=== PATIENT | female | born 1950 | race Caucasian/White ===

== ENCOUNTER 2018-06-07 11:54 | Outpatient (CLI) | payer MEDICARE ==
--- NOTE | 2018-06-08 11:05 | EEG ---
Referring Physician: Mark MONTEIRO EEG # [id number] TEST TYPE: ROUTINE OUTPATIENT REPORT: AN EEG USING THE INTERNATIONAL TEN-TWENTY SYSTEM OF ELECTRODE PLACEMENT WAS PERFORMED. The waking background is a 9-10 hertz frequency. The patient became drowsy, but no sleep was seen. Hyperventilation and photic stimulation were unremarkable. No epileptiform features were seen. IMPRESSION: THIS IS A NORMAL AWAKE AND DROWSY EEG. Meter Changes Records Clerk: CAROLYNN Ditcher: EEG.ELFEGO BOLES
== END 2018-06-07 11:55 | disposition home or self-care (01) ==
LOC: EEG 11:54
PROVIDERS: ATTEND Internal Medicine
DX: R56.9 Unspecified convulsions (principal)
CPT/HCPCS: 95816

== ENCOUNTER 2018-07-24 11:09 | Observation (INO) | payer MEDICARE ==
[2018-07-24 11:35] LABS: #Basophils 0.1 thou/uL (0.0-0.2); #Eosinphils 0.1 thou/uL (0.0-0.7); #Lymphocytes 2.7 thou/uL (1.20-3.40); #Monocytes 0.5 thou/uL (0.11-0.59); #Neutrophils 3.1 thou/uL (1.40-6.50); %Basophils 1.7 % (0.0-1.0); %Eosinophils 1.7 % (0.0-10.0); %Lymphocytes 41.5 % (21.0-51.0); %Monocytes 7.8 % (0.0-10.0); %Neutrophils 47.2 % (42.0-75.0); Hemoglobin 15.7 g/dL (12.0-16.0); Mean Corpuscular HGB CONC 34.9 g/dL (32.0-36.0); Mean Corpuscular Hemoglobin 30.7 pg (27.0-31.0); Mean Corpuscular Volume 88.1 fL (78.0-98.0); Mean Platelet Volume 9.7 fL (7.4-10.4); Platelet Count 230 thou/uL (130-400); RBC Distribution Width 11.5 % (11.5-14.5); Red Blood Cell (RBC) Count 5.11 mill/uL (4.20-5.40); White Blood Cell (WBC) Count 6.6 thou/uL (4.8-10.8)
[2018-07-24] MEDS ORDERED: Nitroglycerin 2% Ointment 1 INCH/1 GM Packet ONE (11:54)
[2018-07-24 11:57] LABS: ALT (SGPT) 24 U/L (8-55); AST (SGOT) 26 U/L (5-34); Albumin 4.6 g/dL (3.4-4.8); Alkaline Phosphatase 60 U/L (40-150); Anion Gap 14 mmol/L (10-20); BUN (Urea Nitrogen) 14 mg/dL (9.8-20.1); Bilirubin, Total 1.4 mg/dL (0.2-1.2); Calc. Creatinine Clearance 0 mL/min (70-130); Carbon Dioxide 28 mmol/L (23-31); Chloride 103 mmol/L (98-107); Estimated GFR-MDRD 80; Globulin 3.3 g/dL (2.4-3.5); Glucose 100 mg/dL (80-115); Potassium 3.3 mmol/L (3.5-5.1); Protein, Total 7.9 g/dL (6.0-8.3); Sodium 142 mmol/L (136-145)
[2018-07-24] MEDS ORDERED: Acetaminophen 325 MG TAB PO PRN (14:57)
[2018-07-24] MEDS ORDERED: Sodium Chloride 0.9% 1,000 ML IV SCH (14:57)
[2018-07-24] MEDS ORDERED: Ondansetron PF 4 MG/2 ML Vial IVP PRN (14:57)
[2018-07-24] MEDS ORDERED: Ondansetron ODT 4 MG TAB PO PRN (14:57)
[2018-07-24 15:14] LABS: Troponin I Less than 0.010 ng/mL (< 0.028)
[2018-07-24 15:34] VITALS: BMI 30.2
--- NOTE | 2018-07-24 17:36 | HP ---
PRIMARY CARE PHYSICIAN: Monster Jones MD CHIEF COMPLAINT: Feeling lightheaded and generally not so well. HISTORY OF PRESENT ILLNESS: Ms. Allen is a very pleasant 67-year-old female, who has a history of hypertension and hyperlipidemia. She also has a history of previous transient ischemic attack. She says that she was in her usual state of health until earlier today. She says she was decorating the [place] tree when she started to feel lightheaded and also felt nauseated. As she was starting to feel nauseated, she started to feel extremely hot and says that her hands felt shaky. She felt sweaty and felt like she might want to blackout. She denies any ren chest pain, but her says that she did complain of some tightness across her chest as well. She also says that she felt weak all over and as a result of this, she came to the ER for evaluation. She says that she has had TIAs in the past. Her last one was in March of this year. She says during those episodes, she would have trouble with word finding and would have some numbness in her body; however, she says these symptoms are completely different. She says that she saw a neurologist recently and was started on Plavix and Aricept and she is wondering if these medications could be causing her symptoms. She also notes that her blood pressure, which used to be low over the last few months to even a year has been steadily increasing to the point where her says that a few times they checked it, it was 190 systolic and she is currently not on any blood pressure medication. She denies having any PND or orthopnea. No lower extremity edema and essentially, no other associated symptoms other than feeling a bit feverish yesterday, some nausea yesterday as well as some diarrhea yesterday as well as today and no other complaints. REVIEW OF SYSTEMS: All systems were reviewed and are negative except for that mentioned in the history of present illness. PAST MEDICAL HISTORY: Significant for hypertension, hyperlipidemia, transient ischemic attack. 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 PAST SURGICAL HISTORY: She has had a hysterectomy and carpal tunnel surgery. ALLERGIES: NO KNOWN DRUG ALLERGIES. SOCIAL HISTORY: She is . She is a nonsmoker. She occasionally drinks. She would like to be a full code. FAMILY HISTORY: She says her father of heart disease suddenly at age 47, also history of cerebrovascular disease. CURRENT MEDICATIONS: Include: 1. Plavix 75 mg daily. 2. Aricept, the dose is unknown. 3. Potassium 10 mEq 2 tablets a day. 4. Celebrex 200 mg daily. 5. Nexium 40 mg daily. 6. Memantine 5 mg daily. 7. Atorvastatin 40 mg daily. 8. Levothyroxine 100 mcg daily. 9. Vitamin D3. PHYSICAL EXAMINATION: GENERAL: She is alert, oriented. She appears to be in no acute distress. VITAL SIGNS: Blood pressure was 183/115, heart rate 65, respiratory rate of 18, and temperature is 97.8. HEENT: Her pupils are equal, round, and reactive. Extraocular muscles are intact. Her sclerae are anicteric. Throat, there is no erythema. No exudates. NECK: No adenopathy. No bruits. LUNGS: Clear to auscultation. There are no wheezing, rales, or rhonchi. CARDIOVASCULAR: She had a normal S1 and S2. I do not appreciate an S3 or S4. No murmurs, clicks, or rubs. ABDOMEN: Obese and soft. There is no rebound or guarding. It was nontender. EXTREMITIES: She has trace but non-pitting edema. No calf tenderness. No erythema. No warmth. NEUROLOGIC: Her cranial nerves II through XII are grossly intact. Her muscle strength is 5/5 in both her upper and lower extremities. SKIN AND INTEGUMENT: There are no skin changes. No rash. LAB RESULTS: Her EKG was reviewed by me, was sinus rhythm. No ST wave changes. The rate was 86. Sodium is 142, potassium 3.3, chloride is 103, CO2 is 28, BUN of 14, creatinine 0.73, and glucose is 100. Troponin is less than 0.010. White blood cell count 6.6, hemoglobin is 15.7, hematocrit is 45, and platelet count is 230. ASSESSMENT AND PLAN: This is a pleasant 67-year-old female, who presents with vague symptoms of feeling lightheaded, a bit nauseated and feeling like she is going to pass out. She has also had some diarrhea and nausea and one episode of vomiting. I suspect this is likely some type of viral syndrome. However, since she has a family history of heart disease with her father dying suddenly at only age 47, we will place her on observation and get a nuclear stress test as well as an echocardiogram. Monitor her for signs of any significant arrhythmia, and if these are negative, then likely she can be discharged home. 1. Hypertension. With some hypertensive urgency as her pressure is fairly high, we will need to start her on an antihypertensive medication as well as p.r.n. medicines and continue this at discharge. 2. Hyperlipidemia. Continue atorvastatin. 3. Nausea and slightly elevated bilirubin. We will get an abdominal ultrasound. The patient gives a history of having some type of hyperammonia levels years ago. She said she had seen Dr. Vences who was one of our neurologist a few years back and her electrolytes were all "off." Therefore, just as a screening, we will get an abdominal ultrasound while she is here. Otherwise, further treatment will be based on her progress. Job ID: [id number]
[2018-07-24 17:42] LABS: Troponin I Less than 0.010 ng/mL (< 0.028)
[2018-07-24] MEDS: cloNIDine 0.1 MG TAB PO PRN (18:16)
[2018-07-24] MEDS: Famotidine 20 MG TAB PO SCH (20:48)
[2018-07-25] MEDS: Nitroglycerin 2% Ointment 1 INCH/1 GM Packet TOP SCH ×2 (04:44→13:53)
[2018-07-25 07:08] LABS: #Basophils 0.1 thou/uL (0.0-0.2); #Eosinphils 0.1 thou/uL (0.0-0.7); #Lymphocytes 2.1 thou/uL (1.20-3.40); #Monocytes 0.4 thou/uL (0.11-0.59); #Neutrophils 2.7 thou/uL (1.40-6.50); %Basophils 1.4 % (0.0-1.0); %Eosinophils 2.1 % (0.0-10.0); %Lymphocytes 39.4 % (21.0-51.0); %Monocytes 7.3 % (0.0-10.0); %Neutrophils 49.9 % (42.0-75.0); Hemoglobin 14.2 g/dL (12.0-16.0); Mean Corpuscular HGB CONC 34.3 g/dL (32.0-36.0); Mean Corpuscular Hemoglobin 30.3 pg (27.0-31.0); Mean Corpuscular Volume 88.5 fL (78.0-98.0); Mean Platelet Volume 9.7 fL (7.4-10.4); Platelet Count 207 thou/uL (130-400); RBC Distribution Width 11.5 % (11.5-14.5); White Blood Cell (WBC) Count 5.4 thou/uL (4.8-10.8)
[2018-07-25 07:23] LABS: ALT (SGPT) 23 U/L (8-55); AST (SGOT) 23 U/L (5-34); Albumin 3.9 g/dL (3.4-4.8); Alkaline Phosphatase 50 U/L (40-150); Anion Gap 12 mmol/L (10-20); BUN (Urea Nitrogen) 13 mg/dL (9.8-20.1); Bilirubin, Total 1.5 mg/dL (0.2-1.2); Calc. Creatinine Clearance 92 mL/min (70-130); Calcium 9.3 mg/dL (7.8-10.44); Carbon Dioxide 27 mmol/L (23-31); Chloride 105 mmol/L (98-107); Estimated GFR-MDRD 81; Globulin 2.7 g/dL (2.4-3.5); Glucose 102 mg/dL (80-115); Potassium 3.8 mmol/L (3.5-5.1); Protein, Total 6.6 g/dL (6.0-8.3); Sodium 140 mmol/L (136-145)
[2018-07-25] MEDS: Famotidine 20 MG TAB PO SCH (08:28)
[2018-07-25] MEDS: cloNIDine 0.1 MG TAB PO PRN (08:30)
[2018-07-25] MEDS ORDERED: ADENOSINE 60 MG/20 ML VIAL ONE (08:33)
[2018-07-25] MEDS ORDERED: Enoxaparin Sodium 40 MG/0.4 ML SYRINGE SC SCH (09:00)
[2018-07-25] MEDS ORDERED: Clopidogrel Bisulfate 75 MG TAB PO SCH (09:00)
--- NOTE | 2018-07-25 10:51 | ULT ---
ABDOMINAL ULTRASOUND: HISTORY: Elevated bilirubin, nausea. FINDINGS: Multiple longitudinal and transverse images of the abdomen were obtained using a multihertz curviline ar transducer. Rela-time, color flow, and spectral waveform Doppler analysis was used to evaluate th e abdomen. The liver is unremarkable. Normal hepatopetal flow is seen in the portal system. The gallbladder is unremarkable with no evidence of gallstones. The visualized portions of the pancreas are unremarkab le. Common bile duct is of normal size measuring 3 mm. The spleen is unremarkable. Abdominal aorta is unremarkable with no evidence of aneurysm. Inferior vena cava in the visualized p ortions is unremarkable. The right kidney measures 10.8 and the left kidney 9.5 cm from pole to pole. No evidence of ascites seen. IMPRESSION: Normal abdominal ultrasound. POS: H
[2018-07-25 13:14] VITALS: BP 134/65; TEMP 97.7
--- NOTE | 2018-07-25 14:15 | NM ---
MYOCARDIAL PERFUSION SCAN: DATE: 07/25/2018. PROVIDED CLINICAL HISTORY: Chest pain. RADIOPHARMACEUTICAL: 30.4 mCi Technetium 99m labeled sestamibi IV stress. 11 mCi Technetium 99m labeled sestamibi IV rest. FINDINGS: There is normal, homogeneous distribution of the radiotracer throughout the left ventricular myocardi um at stress and rest. Gated data demonstrate normal myocardial wall thickening and motion. Calcula katlin LEVF is 73%. TID is 1.26. IMPRESSION: 1. No scintigraphic evidence for ischemia. 2. Normal left ventricular ejection fraction. POS: [facility]
--- NOTE | 2018-07-26 09:05 | DIS ---
DATE OF ADMISSION: 07/24/2018 DATE OF DISCHARGE: 07/25/2018 PRIMARY CARE PHYSICIAN: Dr. Jones. CONSULTANTS: None. PROCEDURES: 1. The patient had an abdominal ultrasound, which showed a normal abdominal ultrasound, no acute findings. The patient also had a stress test with nuclear medicine, which showed an EF of 72% and TID of 1.26, no evidence for ischemia. 2. Normal left ventricular ejection fraction. The patient also had an echocardiogram, which showed an ejection fraction of 60% to 65%. E/A flow reversal was noted, suggestive of diastolic dysfunction. Normal right ventricular size and function. Left atrium is mild to moderately dilated. Normal right atrium size. Mild mitral regurgitation. Structurally normal aortic valve. Trace tricuspid regurgitation. DISCHARGE DIAGNOSES: 1. Hypertension, improved. We will start her on some lisinopril with hydrochlorothiazide as an outpatient. The patient has a followup with Dr. Jones tomorrow. 2. Hyperlipidemia. We will continue with atorvastatin. 3. Nausea and slightly elevated bilirubin. Her nausea has resolved. Abdominal ultrasound negative as mentioned above. 4. Hypothyroidism. We will continue her home medications. HOSPITAL COURSE: Ms. Allen is a pleasant 67-year-old female, who presented to the emergency room on 07/24/2018 after she was decorating her [place] tree and she started to feel lightheaded and felt nauseated. She reports that she felt extremely hot and her hands were shaky. She felt very sweaty and thought that she might have a presyncopal episode. She denied any chest pain at that time. Her says that she did complain of some chest tightness. She reports that she just generally felt weak all over, which prompted her visit to the ER. She says that she has had TIAs in the past, her last one was in March of 2018. She reports that she has seen Dr. Yin recently and he started her on Plavix and Aricept. The patient, based on symptoms and history, was admitted for chest pain evaluation. The patient had 3 serial troponins, which were undetectable. The patient also had a stress test and an echocardiogram with an EF of 60% to 65%, findings as listed above. The patient states she feels better. Blood pressure here has been in the 170s to 180s systolic. We will send her home with some lisinopril and hydrochlorothiazide with the understanding that Dr. Jones may change it tomorrow at her scheduled appointment. Case was discussed with Dr. Zhang, who agrees with discharge plan. The patient is agreeable to be discharged home. REVIEW OF SYSTEMS: The patient was examined this morning. Denied any dizziness currently and reports that she has been able to get up and go to the bathroom and walking the day without any dizziness or any presyncope. Denies any complaints. She reports that she had some nausea overnight, but that has since gone. Denies any abdominal pain, fever, chills, or headache. All other review of systems is reviewed and negative unless mentioned above. PHYSICAL EXAMINATION: VITAL SIGNS: Temperature is 98.2, pulse is 60, respirations are 16, blood pressure 173/81, pulse ox is 95% on room air. GENERAL APPEARANCE: The patient is alert and oriented, not in any acute distress. HEENT: Head is atraumatic and normocephalic. Mouth exam is normal. Mucous membranes are moist. RESPIRATORY: Bilateral air entry, in no respiratory distress. Symmetric expansion. CARDIOVASCULAR: Normal rate and rhythm. No murmurs, gallops, or edema. ABDOMEN: Soft, nontender. Bowel sounds are heard. MUSCULOSKELETAL: Upper and lower extremities with normal inspection, normal range of motion, and normal strength. Pulses are equal bilateral upper and lower. No pedal edema is noted. NEURO: No new sensory or focal weakness. Speech is at baseline. Cranial nerves are intact. PSYCHIATRIC: The patient is oriented to person, place, and time. Normal affect. DISCHARGE MEDICATIONS: The patient will be discharged on her home medications, which include: 1. Aspirin 81 mg p.o. daily. 2. Lipitor 40 mg p.o. at bedtime. 3. Celebrex 200 mg p.o. daily. 4. Vitamin D 5000 units p.o. daily. 5. Plavix 75 mg p.o. daily. 6. Aricept 5 mg p.o. at bedtime, although the patient said she cannot remember the exact dose that was just started. 7. Lexapro 5 mg p.o. daily. 8. Protonix 40 mg p.o. daily. 9. Levothyroxine 100 mcg p.o. daily. 10. Memantine 5 mg p.o. daily. 11. Potassium chloride 20 mEq p.o. b.i.d. Added on this visit, lisinopril and hydrochlorothiazide 10 mg/12.5 mg p.o. daily. ALLERGIES: NO KNOWN ALLERGIES. DISCHARGE CONDITION: The patient's condition is stable. DISCHARGE DISPOSITION: The patient will be discharged home. REFERRALS: Dr. Jones as her scheduled appointment is tomorrow. Encouraged her to keep that appointment. Dr. Yin as needed from her previous TIA earlier in the summer. Job ID: [id number]
--- NOTE | 2018-07-31 13:25 | EKG ---
Test Reason : Blood Pressure : / mmHG Vent. Rate : 066 BPM Atrial Rate : 066 BPM P-R Int : 174 ms QRS Dur : 084 ms QT Int : 446 ms P-R-T Axes : 043 -04 028 degrees QTc Int : 467 ms Normal sinus rhythm Normal ECG Confirmed by LAILA TROY DO ([id number]), editor managing newspaper MIRI FERREIRA ([id number]) on 07/31/2018 1:24:42 PM Referred By: Confirmed By:LAILA TROY DO
== END 2018-07-25 15:22 | disposition home or self-care (01) ==
LOC: ERS 11:09 → 2SW 12:52
PROVIDERS: ADMIT Internal Medicine; ATTEND Internal Medicine
DX: R07.89 Other chest pain (principal); R42 Dizziness and giddiness; I16.0 Hypertensive urgency; I10 Essential (primary) hypertension; E78.5 Hyperlipidemia, unspecified; R11.2 Nausea with vomiting, unspecified; R19.7 Diarrhea, unspecified; E80.6 Other disorders of bilirubin metabolism; E03.9 Hypothyroidism, unspecified; I08.1 Rheumatic disorders of both mitral and tricuspid valves; E78.00 Pure hypercholesterolemia, unspecified; Z86.73 Personal history of transient ischemic attack (TIA), and cerebral infarction without residual deficits; Z79.02 Long term (current) use of antithrombotics/antiplatelets; Z79.899 Other long term (current) drug therapy
CPT/HCPCS: 76700; 78452; 80053 ×2; 84484 ×2; 85025 ×2; 93005; 93017; 93306; 94760 ×2; 96360; 96361 ×2; 99285; A9500; G0378 ×2; 36415; J0153

== ENCOUNTER → 2018-10-26 | Day surgery (SDC) | payer MEDICARE | LOC: ENDO/OP 07:43 | PROVIDERS: ATTEND Surgery | DX: K21.9 Gastro-esophageal reflux disease without esophagitis (principal); K44.9 Diaphragmatic hernia without obstruction or gangrene; Z79.82 Long term (current) use of aspirin; Z79.02 Long term (current) use of antithrombotics/antiplatelets; Z79.1 Long term (current) use of non-steroidal anti-inflammatories (NSAID); Z79.899 Other long term (current) drug therapy | CPT/HCPCS: 91010 ==

== ENCOUNTER 2018-11-12 03:36 | Outpatient (CLI) | payer MEDICARE ==
[2018-11-12 10:55] LABS: #Basophils 0.1 thou/uL (0.0-0.2); #Eosinphils 0.1 thou/uL (0.0-0.7); #Lymphocytes 2.3 thou/uL (1.20-3.40); #Monocytes 0.6 thou/uL (0.11-0.59); %Lymphocytes 38.3 % (21.0-51.0); %Monocytes 9.2 % (0.0-10.0); %Neutrophils 49.6 % (42.0-75.0); Hemoglobin 13.2 g/dL (12.0-16.0); Mean Corpuscular HGB CONC 33.5 g/dL (32.0-36.0); Mean Corpuscular Hemoglobin 30.3 pg (27.0-31.0); Mean Corpuscular Volume 90.6 fL (78.0-98.0); Mean Platelet Volume 9.3 fL (7.4-10.4); Platelet Count 227 thou/uL (130-400); RBC Distribution Width 11.7 % (11.5-14.5); Red Blood Cell (RBC) Count 4.34 mill/uL (4.20-5.40)
[2018-11-12 11:24] LABS: ALT (SGPT) 25 U/L (8-55); AST (SGOT) 22 U/L (5-34); Albumin 4.4 g/dL (3.4-4.8); Alkaline Phosphatase 52 U/L (40-150); Anion Gap 11 mmol/L (10-20); BUN (Urea Nitrogen) 17 mg/dL (9.8-20.1); Bilirubin, Total 1.1 mg/dL (0.2-1.2); Calc. Creatinine Clearance 0 mL/min (70-130); Calcium 9.8 mg/dL (7.8-10.44); Carbon Dioxide 30 mmol/L (23-31); Chloride 103 mmol/L (98-107); Estimated GFR-MDRD 81; Globulin 2.9 g/dL (2.4-3.5); Glucose 100 mg/dL (80-115); Potassium 3.8 mmol/L (3.5-5.1); Protein, Total 7.3 g/dL (6.0-8.3); Sodium 140 mmol/L (136-145)
--- NOTE | 2018-11-15 17:52 | EKG ---
Test Reason : Blood Pressure : / mmHG Vent. Rate : 058 BPM Atrial Rate : 058 BPM P-R Int : 176 ms QRS Dur : 082 ms QT Int : 450 ms P-R-T Axes : 050 011 008 degrees QTc Int : 441 ms Sinus bradycardia Possible Anterior infarct , age undetermined Abnormal ECG When compared with ECG of 24-JUL-2018 11:21, No significant change was found Confirmed by CHRISTINA CARMICHAEL (2) on 11/15/2018 5:52:08 PM Referred By: KRAIG Confirmed By:CHRISTINA CARMICHAEL
== END 2018-11-12 03:37 | disposition home or self-care (01) ==
LOC: LABBT 03:36
PROVIDERS: ATTEND Surgery
DX: Z01.818 Encounter for other preprocedural examination (principal); K21.9 Gastro-esophageal reflux disease without esophagitis; K44.9 Diaphragmatic hernia without obstruction or gangrene
CPT/HCPCS: 80053; 85025; 93005; 93010

== ENCOUNTER 2018-11-15 08:27 | Inpatient (IN) | payer MEDICARE ==
[2018-11-12 09:37] VITALS: BMI 31.2
[2018-11-15] MEDS ORDERED: Fentanyl 100 MCG/2 ML VIAL ONE ×2 (10:03→12:08)
[2018-11-15] MEDS ORDERED: Bupivacaine/Epinephrine 0.25% 30 ML VIAL ONE (10:04)
[2018-11-15] MEDS ORDERED: Promethazine HCl 25 MG/ML VIAL IM PRN ×2 (11:45→11:51)
[2018-11-15] MEDS ORDERED: Hydrocodone-Acetamin 15 ML UDCUP PO PRN (11:45)
[2018-11-15] MEDS ORDERED: Dextrose 5% in Water 1,000 ML IV PRN (11:45)
[2018-11-15] MEDS ORDERED: diphenhydrAMINE 50 MG/ML VIAL IVP PRN (11:45)
[2018-11-15] MEDS ORDERED: Dextrose 50% Abboject 50 ML SYRINGE SLOW IVP PRN (11:45)
[2018-11-15] MEDS ORDERED: hydrALAZINE 20 MG/ML VIAL SLOW IVP PRN (11:45)
[2018-11-15] MEDS ORDERED: Morphine 2 MG/ML SYRINGE SLOW IVP PRN (11:45)
[2018-11-15] MEDS ORDERED: Promethazine HCl 25 MG/ML VIAL SLOW IVP PRN (11:51)
[2018-11-15] MEDS ORDERED: Morphine Sulfate 2 MG/ML SYRINGE SLOW IVP PRN (11:51)
[2018-11-15] MEDS ORDERED: HYDROmorphone 2 MG/ML VIAL SLOW IVP PRN (11:51)
[2018-11-15] MEDS ORDERED: PACU-Morphine 4MG/ML VIAL SLOW IVP PRN (11:51)
[2018-11-15] MEDS ORDERED: Ketorolac Tromethamine 30 MG/ML VIAL IVP PRN (11:51)
[2018-11-15] MEDS ORDERED: Ondansetron HCl/PF 4 MG/2 ML Vial IVP PRN (11:51)
[2018-11-15] MEDS ORDERED: Meperidine HCl/PF 25 MG/ML VIAL SLOW IVP PRN (11:51)
[2018-11-15] MEDS: Ketorolac Tromethamine 30 MG/ML VIAL IVP SCH ×2 (13:24→17:56)
[2018-11-15] MEDS: D5 1/2 NS w/20 mEq KCL 1,000 ML IV SCH ×2 (13:24→20:52)
[2018-11-15] MEDS: Morphine 4 MG/ML VIAL SLOW IVP PRN ×2 (13:43→17:57)
[2018-11-15] MEDS: Ondansetron PF 4 MG/2 ML Vial IVP PRN ×2 (13:43→18:12)
--- NOTE | 2018-11-15 13:46 | OP ---
DATE OF PROCEDURE: 11/15/2018 PREOPERATIVE DIAGNOSIS: Hiatal hernia with gastroesophageal reflux. PROCEDURE PERFORMED: Laparoscopic Shakila fundoplication with esophagogastroscopy. INDICATIONS: A 68-year-old female with intractable gastroesophageal reflux, no longer responding to proton pump inhibitors with esophagitis. FINDINGS: Showed about 3 cm hiatal hernia. A 42-Arabic bougie used. DESCRIPTION OF PROCEDURE: After informed consent was obtained, the patient was taken to the operating room and given general endotracheal anesthesia, placed in the supine position. Abdomen was prepped and draped in usual fashion. Local anesthesia infiltrated subcutaneously and deep. A 5 mm incision was performed approximately 8 inches above the xiphoid slightly to the left. Veress needle inserted. Drop test performed. Pneumoperitoneum was created to a volume of 2 L of carbon dioxide. Using a 5-mm port and 5-mm laparoscope, direct visual entry into the abdominal cavity was performed. Pneumoperitoneum was created to a pressure of 15 mmHg and the patient placed in steep reverse Trendelenburg position. Geraldine liver retractor inserted. Left lobe of the liver retracted superiorly. A 5-mm port was placed just to the left of the falciform. An 8-mm port placed on left subcostal, and another 5-mm port placed on left lateral abdomen. The gastrophrenic ligament was divided utilizing the LigaSure. The peritoneum opened anteriorly with the LigaSure and the left crura defined with the LigaSure. Then, the short gastrics were taken down utilizing the LigaSure and the posterior crural area was dissected with the LigaSure. The posterior vagal nerve was identified and preserved. A window was created between the hiatus and the posterior vagal nerve using blunt dissection. A Gloria drain was inserted through this area to allow retraction of the esophagus. A 42-Arabic bougie was inserted directed into the stomach. Then, a posterior crural plication was performed utilizing 0 Ethibond with Sew-Right and Ti-Knot device. Then, the fundus was grasped and brought to the right side of the esophagus. A fundoplication was performed utilizing 2-0 silk sutures tied intracorporeally between the left portion of the fundus, the esophagus, and the right portion of the fundus. Three sutures were placed. This was done intracorporeally. A gastropexy was then performed between the inferior lateral portion of the fundus to the abdominal wall at the costal margin with a 2-0 silk suture tied intracorporeally. Intraoperative endoscopy was then performed. The video endoscope inserted under direct vision, advanced into the stomach. The pylorus was patent. The scope was retroflexed. The wrap was inspected. There was no torsion, no paraesophageal component. The stomach decompressed. The scope removed. Then, Tisseel tissue sealant was applied to the hiatal opening and the wrap circumferentially. The abdomen decompressed. Scope removed. Trocars and retractors removed. Skin closed with interrupted 4-0 Rapide. Dermabond applied. The patient tolerated the procedure well, transferred to Recovery in good condition. Sponge and needle count verified correct x2. Job ID: [id number]
[2018-11-15] MEDS ORDERED: ePHEDrine 50 MG/ML VIAL ONE (15:27)
[2018-11-15] MEDS ORDERED: Rocuronium Bromide 10 MG/ML (10ML VIAL) ONE (15:27)
[2018-11-15] MEDS ORDERED: Succinylcholine Chloride 20 MG/ML 10 ml SYRINGE FS ONE (15:27)
[2018-11-15] MEDS ORDERED: Lidocaine 1% PF 5 ML VIAL ONE (15:27)
[2018-11-15] MEDS ORDERED: Glycopyrrolate 0.2 MG/ML 5 ML SYRINGE ONE (15:27)
[2018-11-15] MEDS ORDERED: PROPOFOL 200 MG/20 ML VIAL ONE (15:27)
[2018-11-15] MEDS ORDERED: Dexamethasone 20 MG/5 ML VIAL ONE (15:27)
[2018-11-15] MEDS: CEFAZOLIN 2 GM in Premix Bag 1 BAG IVPB SCH (21:00)
[2018-11-16] MEDS: Ketorolac Tromethamine 30 MG/ML VIAL IVP SCH ×3 (01:21→12:15)
[2018-11-16 04:38] LABS: #Lymphocytes 1.5 thou/uL (1.20-3.40); #Neutrophils 11.2 thou/uL (1.40-6.50); %Basophils 0.1 % (0.0-1.0); %Eosinophils 0.1 % (0.0-10.0); %Lymphocytes 10.8 % (21.0-51.0); %Monocytes 7.3 % (0.0-10.0); %Neutrophils 81.7 % (42.0-75.0); Hemoglobin 11.7 g/dL (12.0-16.0); Mean Corpuscular Hemoglobin 30.6 pg (27.0-31.0); Mean Corpuscular Volume 89.8 fL (78.0-98.0); Mean Platelet Volume 9.5 fL (7.4-10.4); Platelet Count 194 thou/uL (130-400); RBC Distribution Width 11.8 % (11.5-14.5); Red Blood Cell (RBC) Count 3.83 mill/uL (4.20-5.40); White Blood Cell (WBC) Count 13.7 thou/uL (4.8-10.8)
[2018-11-16 04:53] LABS: Anion Gap 12 mmol/L (10-20); BUN (Urea Nitrogen) 10 mg/dL (9.8-20.1); Calc. Creatinine Clearance 97 mL/min (70-130); Calcium 9.1 mg/dL (7.8-10.44); Carbon Dioxide 27 mmol/L (23-31); Chloride 104 mmol/L (98-107); Estimated GFR-MDRD 84; Glucose 142 mg/dL (80-115); Potassium 4.5 mmol/L (3.5-5.1); Sodium 138 mmol/L (136-145)
[2018-11-16] MEDS: D5 1/2 NS w/20 mEq KCL 1,000 ML IV SCH ×2 (05:40→09:45)
[2018-11-16] MEDS: CEFAZOLIN 2 GM in Premix Bag 1 BAG IVPB SCH (05:41)
[2018-11-16] MEDS ORDERED: Pantoprazole 40 MG VIAL IVP SCH (09:00)
[2018-11-16] MEDS ORDERED: Enoxaparin Sodium 40 MG/0.4 ML SYRINGE SC SCH (09:00)
--- NOTE | 2018-11-16 09:19 | RAD ---
FExam: CT cervical spine without contrast HISTORY: Trauma. Pain. Status post fall. COMPARISON: None FINDINGS: No craniocervical dissociation. Appropriate alignment of the lateral masses of C1 and C2. A ppropriate alignment of the facets. Intact odontoid process Extensive cervical fusion from C3 through T1. No louis hardware lucency. Cervical spine vertebral body height is maintained. No fracture. Soft tissue neck structures are unremarkable. Varying degrees of central canal stenosis and neural foraminal narrowing on the basis of degenerative change. Evaluation is limited due to technique There is straightening of the upper mediastinal fat, nonspecific Because lung apices are unremarkable Straightening of normal cervical lordosis is preserved to be due to cervical fusion. There is concern for ligament injury, consider MRI. IMPRESSION: 1. Uncomplicated cervical fusion. Straightening of normal cervical lordosis as detailed above. If th ere is concern for ligamentous injury, consider MRI 2. Cervical spine vertebral body height is maintained. No fracture. 3. Nonspecific stranding of the upper mediastinal fat, probably paraesophageal in location.
[2018-11-16 15:20] VITALS: BP 122/68; TEMP 98.4
--- NOTE | 2018-11-16 18:45 | DIS ---
DATE OF ADMISSION: 11/15/2018 DATE OF DISCHARGE: 11/16/2018 DISCHARGE DIAGNOSIS: Hiatal hernia with gastroesophageal reflux. PROCEDURE DURING ADMISSION: Laparoscopic Shakila fundoplication, intraoperative esophagogastroscopy, postoperative Gastrografin swallow. HOSPITAL COURSE: The patient was admitted, taken to the operating room where she underwent a repair of hiatal hernia and Shakila. Postoperatively, she has done well. Gastrografin swallow was fine. Started on liquids. She is tolerating well. She was discharged home on hydrocodone and Zofran. She will follow up with me in 2 weeks. Job ID: [id number]
--- NOTE | 2018-11-19 14:25 | RAD ---
UPPER GI SERIES: HISTORY: Status post gastric sleeve. RADIATION DOSIMETRY: 0.8 minutes of fluoroscopy and DAP of 11.4 uGy*^cm2. 15 mL of Gastrografin was given orally. Spot images obtained. The esophagus is unremarkable with no evidence of masses or lesions. The contrast passes into the stomach. The gastric sleeve is in place. Contrast passes through the g raft stomach into the antrum and duodenum. No evidence of extravasation of contrast seen. IMPRESSION: No evidence of extravasation of contrast in a patient with a recently placed gastric sleeve. POS: [facility]
== END 2018-11-16 15:32 | disposition home or self-care (01) | DRG 328 ==
LOC: SDC 08:27 → SURG A 12:54
PROVIDERS: ADMIT Surgery; ATTEND Surgery
PROC: 0DV44ZZ Restriction of Esophagogastric Junction, Percutaneous Endoscopic Approach (ICD-10-PCS; principal; 2018-11-15)
PROC: 0DJ68ZZ Inspection of Stomach, Via Natural or Artificial Opening Endoscopic (ICD-10-PCS; 2018-11-15)
DX: K44.9 Diaphragmatic hernia without obstruction or gangrene (principal); K21.0 Gastro-esophageal reflux disease with esophagitis; K22.70 Barrett's esophagus without dysplasia; E78.00 Pure hypercholesterolemia, unspecified; J45.909 Unspecified asthma, uncomplicated; F32.9 Major depressive disorder, single episode, unspecified; M79.7 Fibromyalgia; Z86.73 Personal history of transient ischemic attack (TIA), and cerebral infarction without residual deficits; Z79.82 Long term (current) use of aspirin; Z90.710 Acquired absence of both cervix and uterus
CPT/HCPCS: 36415; 74241; 80048; 85025; 94760; C9113; J0360; J1100; J1650; J1885; J2001; J2270; J2405; J2550; J2704; J3010; J3490

== ENCOUNTER 2019-02-02 09:24 | Outpatient (CLI) | payer MEDICARE ==
--- NOTE | 2019-02-02 09:52 | MMO ---
Bilateral MAMMO Bilat Screen DDI+ZULEMA. CLINICAL HISTORY: Patient is 68 years old and is seen for screening. The patient has the following family history of breast cancer: paternal aunt, malignant (generic). The patient has no personal history of cancer. VIEWS: The views performed were: bilateral craniocaudal with tomosynthesis; bilateral mediolateral oblique with tomosynthesis; and right mediolateral oblique. FILMS COMPARED: The present examination has been compared to prior imaging studies performed at [place] on 05/01/2017. MAMMOGRAM FINDINGS: There are scattered fibroglandular densities. There are stable benign appearing calcifications seen in both breasts. There are no suspicious masses, suspicious calcifications, or new areas of architectural distortion. IMPRESSION: THERE IS NO MAMMOGRAPHIC EVIDENCE OF MALIGNANCY. A ROUTINE FOLLOW-UP MAMMOGRAM IN 1 YEAR IS RECOMMENDED. THE RESULTS OF THIS EXAM WERE SENT TO THE PATIENT. ACR BI-RADS Category 2 - Benign finding MAMMOGRAPHY NOTE: 1. A negative mammogram report should not delay a biopsy if a dominant of clinically suspicious mass is present. 2. Approximately 10% to 15% of breast cancers are not detected by mammography. 3. Adenosis and dense breasts may obscure an underlying neoplasm.
== END 2019-02-02 09:25 | disposition home or self-care (01) ==
LOC: BICMAMMO 09:24
PROVIDERS: ATTEND Internal Medicine
DX: Z12.31 Encounter for screening mammogram for malignant neoplasm of breast (principal); Z80.3 Family history of malignant neoplasm of breast
CPT/HCPCS: 77063; 77067

== ENCOUNTER 2019-07-27 08:57 | Observation (INO) | payer MEDICARE, OTHER ==
[2019-07-27 09:25] LABS: #Basophils 0.1 thou/uL (0.0-0.2); #Eosinphils 0.1 thou/uL (0.0-0.7); #Lymphocytes 2.7 thou/uL (1.20-3.40); #Monocytes 0.6 thou/uL (0.11-0.59); #Neutrophils 3.5 thou/uL (1.40-6.50); %Basophils 0.8 % (0.0-1.0); %Eosinophils 1.3 % (0.0-10.0); %Lymphocytes 38.7 % (21.0-51.0); %Neutrophils 51.2 % (42.0-75.0); Hemoglobin 14.1 g/dL (12.0-16.0); Mean Corpuscular HGB CONC 33.6 g/dL (32.0-36.0); Mean Corpuscular Hemoglobin 30.2 pg (27.0-31.0); Mean Corpuscular Volume 89.7 fL (78.0-98.0); Mean Platelet Volume 9.7 fL (7.4-10.4); Platelet Count 220 thou/uL (130-400); RBC Distribution Width 11.7 % (11.5-14.5); Red Blood Cell (RBC) Count 4.68 mill/uL (4.20-5.40); White Blood Cell (WBC) Count 6.9 thou/uL (4.8-10.8)
[2019-07-27 09:42] LABS: ALT (SGPT) 26 U/L (8-55); AST (SGOT) 23 U/L (5-34); Albumin 4.5 g/dL (3.4-4.8); Alkaline Phosphatase 61 U/L (40-110); Anion Gap 13 mmol/L (10-20); BUN (Urea Nitrogen) 12 mg/dL (9.8-20.1); Bilirubin, Total 1.1 mg/dL (0.2-1.2); Calc. Creatinine Clearance 0 mL/min (70-130); Carbon Dioxide 25 mmol/L (23-31); Chloride 108 mmol/L (98-107); Estimated GFR-MDRD 73; Glucose 95 mg/dL (80-115); Lipase 25 U/L (8-78); Potassium 4.1 mmol/L (3.5-5.1); Protein, Total 7.5 g/dL (6.0-8.3); Sodium 142 mmol/L (136-145)
--- NOTE | 2019-07-27 09:55 | RAD ---
XR Chest 1 View Portable History: Chest pain Comparison: Radiograph 2011 Findings: Calcified granuloma right lower lobe. No pneumothorax. No effusion. Cardiac silhouette and mediastinal contours are within normal limits. Calcified right hilar lymph nodes. No acute osseous abnormality. Impression: No acute intrathoracic abnormality.
[2019-07-27] MEDS ORDERED: Aspirin Chewable 81 MG TAB ONE (10:42)
[2019-07-27] MEDS ORDERED: Nitroglycerin 0.4 MG TAB (25 Tab Bottle) PO PRN (10:58)
[2019-07-27] MEDS ORDERED: Calcium Carbonate 500 MG ChewTAB PO PRN (10:59)
[2019-07-27] MEDS ORDERED: Acetaminophen 325 MG TAB PO PRN (10:59)
[2019-07-27] MEDS ORDERED: Senokot S 8.6-50 MG TAB PO PRN (10:59)
[2019-07-27] MEDS ORDERED: cloNIDine 0.1 MG TAB PO PRN (11:31)
[2019-07-27] MEDS ORDERED: Enalaprilat Dihydrate 1.25 MG/ML VIAL SLOW IVP PRN (11:37)
[2019-07-27] MEDS ORDERED: Lisinopril 10 MG TAB PO SCH (11:45)
--- NOTE | 2019-07-27 12:07 | HP ---
PRIMARY CARE PHYSICIAN: Monster Jones MD CHIEF COMPLAINT: Chest discomfort. HISTORY OF PRESENT ILLNESS: The patient is a 68-year-old female with hypertension, hyperlipidemia, transient ischemic attack, and questionable cardiac arrest secondary to hypokalemia in the past, presented to the hospital with above complaints. The chest discomfort started this morning around 9 a.m. She was at [place] visiting her mother. The chest discomfort was substernal, radiating to her left scapula. It was 10/10 with some nausea. It was dull with mild pressure-like without any aggravating or relieving factor. She denies any lightheadedness, dizziness, palpitations, or syncope. She denies recent immobilization or travel. No fever or chills reported. The chest discomfort lasted for 15 to 20 minutes. She denies any chest discomfort at this time. She does not take aspirin on a daily basis. She received 325 mg aspirin in the emergency room. PAST MEDICAL HISTORY: 1. Hypertension. 2. Hyperlipidemia. 3. Hypothyroidism. 4. History of transient ischemic attack. 5. Questionable cardiac arrest secondary to severe hypokalemia. 6. Cognitive decline. 7. Anxiety. PAST SURGICAL HISTORY: 1. Hysterectomy. 2. Carpal tunnel surgery. 3. Cardiac catheterization in 2009 that showed normal coronaries. ALLERGIES: NO KNOWN DRUG ALLERGIES. CURRENT HOME MEDICATIONS: 1. Potassium chloride 10 mEq b.i.d. 2. Memantine 5 mg b.i.d. 3. Levothyroxine 88 mcg daily. 4. Lexapro 5 mg daily. 5. Lipitor 40 mg at bedtime. SOCIAL HISTORY: She is . Denies any smoking. She drinks alcohol occasionally. No drug use. She is full code and her is the primary decision maker. FAMILY HISTORY: Positive for premature coronary artery disease. Father of heart disease at age of 47. Cerebrovascular disease also runs in her family. REVIEW OF SYSTEMS: All other review of systems was reviewed and was found negative. PHYSICAL EXAMINATION: VITAL SIGNS: On ER arrival showed temperature 98.1, respirations of 22, pulse rate of 69 with a blood pressure of 209/90, O2 saturation 98% on room air. GENERAL: A 68-year-old female, in no apparent distress. Denies any chest discomfort at this time. HEENT: Head, atraumatic and normocephalic. Sclerae are anicteric. Moist mucous membranes. No oral lesion. NECK: Supple. No JVD appreciated. No carotid bruit. LUNGS: Clear to auscultation bilaterally. No wheezing, rales, or rhonchi. HEART: S1 and S2 present. Regular rate and rhythm. No rubs or gallops appreciated. ABDOMEN: Soft and nontender. Bowel sounds present. No rebound or guarding. No costovertebral angle tenderness. EXTREMITIES: No edema or calf tenderness. NEUROLOGIC: Grossly nonfocal. Moves all 4 extremities. PSYCHIATRY: Alert, awake, and oriented x3. SKIN: Warm and dry. LYMPH NODES: No palpable lymph nodes in the neck. PERIPHERAL VASCULAR: Radial pulses palpable bilaterally. MUSCULOSKELETAL: No joint swelling or tenderness. LABORATORY FINDINGS: CBC showed WBC 6.9 with hemoglobin 14.1, hematocrit 42, and platelet 220. Chemistry showed sodium 142, potassium 4.1, chloride 108, bicarb 25, BUN 12, and creatinine 0.79. LFTs in normal range. Troponin negative. EKG by my review showed sinus rhythm without significant ST-T wave changes. Chest x-ray by my review was negative for infiltrate or edema. IMPRESSION: 1. Chest discomfort, rule out acute coronary syndrome. 2. Hypertension, uncontrolled. 3. Hyperlipidemia. 4. Anxiety. 5. History of questionable cardiac arrest requiring cardiopulmonary resuscitation secondary to severe hypokalemia. 6. Mild cognitive decline. 7. Chronic kidney disease, stage 2. 8. Normal coronaries in 2010 cardiac catheterization. PLAN: The patient will be monitored in the telemetry unit as observation. We will schedule a Cardiolite stress test if all of her troponins are negative. We will start her on aspirin. We will add lisinopril due to uncontrolled blood pressure. We will resume other home medications. We will reduce the potassium dose to daily while on lisinopril. We will also add p.r.n. antihypertensives. We will resume other home medications. Vital signs per protocol. DISPOSITION: Based on the stress test report. Plan of care was discussed with the patient and the family in detail. They stated understanding. Job ID: [id number]
[2019-07-27 13:06] LABS: Troponin I Less than 0.010 ng/mL (< 0.028)
[2019-07-27] MEDS ORDERED: Lisinopril 10 MG TAB ONE (13:09)
[2019-07-27 16:44] VITALS: BMI 26.6
[2019-07-27 18:36] LABS: Troponin I Less than 0.010 ng/mL (< 0.028)
[2019-07-27] MEDS: Famotidine 20 MG TAB PO SCH (19:45)
[2019-07-27] MEDS ORDERED: Atorvastatin Calcium 40 MG TAB PO SCH (21:00)
[2019-07-27] MEDS ORDERED: Potassium Chloride 10 MEQ TAB PO SCH (21:00)
[2019-07-28] MEDS ORDERED: Levothyroxine Sodium 88 MCG TAB PO SCH (06:00)
[2019-07-28] MEDS ORDERED: Potassium Chloride 10 MEQ TAB PO SCH (08:00)
[2019-07-28] MEDS: Famotidine 20 MG TAB PO SCH (08:17)
[2019-07-28] MEDS ORDERED: Aspirin 325 mg Enteric Coated Tablet PO SCH (09:00)
[2019-07-28] MEDS ORDERED: Prevnar 13-Val Conj/PF 0.5 ML SYRINGE IM ONE (09:00)
[2019-07-28] MEDS ORDERED: Lisinopril 10 MG TAB PO SCH (09:00)
[2019-07-28] MEDS ORDERED: Escitalopram Oxalate 10 mg Tablet PO SCH (09:00)
[2019-07-28 12:53] VITALS: BP 116/59; TEMP 98.1
--- NOTE | 2019-07-28 13:11 | NM ---
EXAM: CARDIAC SPECT HISTORY: Chest pain, hypertension, dyslipidemia TECHNIQUE: A myocardial perfusion scan was performed using the single isotope 2 day protocol with fransico hnetium 99m sestamibi. [28.3 mCi] was injected intravenously for the rest exam followed by 27.4 mCifor the stress study. Exercise stress was monitored and interpreted by Dr. Vaughan FINDINGS: Homogeneous tracer distribution is seen in the myocardial segments on stress and rest image s without fixed or reversible defects. Gated SPECT LVEF: 79% Wall motion exam: Normal IMPRESSION: Normal myocardial perfusion scan
--- NOTE | 2019-07-29 08:43 | DIS ---
DATE OF ADMISSION: 07/27/2019 DATE OF DISCHARGE: 07/28/2019 DISCHARGE DISPOSITION: Home. The patient was seen on the day of discharge. Denies any new complaints. No chest pain or shortness of breath. FOLLOWUP: The patient will follow up with her primary care physician, Dr. Monster Jones in 1 week. Basic metabolic profile after 1 to 2 weeks is recommended, primary care physician advised to follow. DISCHARGE MEDICATIONS: Lisinopril 5 mg b.i.d. All other home medications were left unchanged. BRIEF HOSPITAL COURSE: The patient is a 68-year-old female, with hypertension, hyperlipidemia, transient ischemic attack, and questionable cardiac arrest secondary to hypokalemia in the past, presented to the emergency room with chest discomfort. Her serial troponins remain negative. She underwent a Cardiolite stress test that was negative for reversible ischemia. She is chest pain free at this time. Due to uncontrolled blood pressure, lisinopril was added. She was advised to monitor her blood pressure on a daily basis and to maintain a log. She was advised to reduce lisinopril to once a day if her blood pressures are well controlled. FINAL DIAGNOSES: 1. Chest discomfort, probably secondary to uncontrolled hypertension. 2. Hyperlipidemia. 3. Anxiety. 4. Mild cognitive decline. 5. Chronic kidney disease, stage 2. 6. Normal coronaries in 2010 cardiac catheterization. 7. Questionable cardiac arrest, requiring CPR secondary to severe hypokalemia. Plan was discussed with the patient in detail. She stated understanding. Job ID: [id number]
== END 2019-07-28 14:28 | disposition home or self-care (01) ==
LOC: ERS 08:57 → ERHOLD 10:47 → 2SW 16:37
PROVIDERS: ADMIT Internal Medicine; ATTEND Internal Medicine
DX: R07.89 Other chest pain (principal); E78.5 Hyperlipidemia, unspecified; F41.9 Anxiety disorder, unspecified; R41.81 Age-related cognitive decline; I12.9 Hypertensive chronic kidney disease with stage 1 through stage 4 chronic kidney disease, or unspecified chronic kidney disease; N18.2 Chronic kidney disease, stage 2 (mild); E03.9 Hypothyroidism, unspecified; Z86.73 Personal history of transient ischemic attack (TIA), and cerebral infarction without residual deficits; Z79.899 Other long term (current) drug therapy
CPT/HCPCS: 71045; 78452; 80053; 83690; 84484 ×2; 85025; 93005; 93017; 94760; 99285; A9500; G0378 ×3; 36415

== ENCOUNTER 2020-07-18 14:26 | Emergency (ER) | payer MEDICARE ==
[2020-07-18] MEDS ORDERED: Iopamidol-370 76% 500 ML 1 ML ONE (14:28)
[2020-07-18 15:40] LABS: #Basophils 0.1 thou/uL (0.0-0.2); #Eosinphils 0.1 thou/uL (0.0-0.7); #Lymphocytes 1.8 thou/uL (1.20-3.40); #Monocytes 0.5 thou/uL (0.11-0.59); #Neutrophils 5.4 thou/uL (1.40-6.50); %Basophils 0.8 % (0.0-1.0); %Lymphocytes 23.2 % (21.0-51.0); %Monocytes 6.5 % (0.0-10.0); %Neutrophils 68.5 % (42.0-75.0); Hemoglobin 13.4 g/dL (12.0-16.0); Mean Corpuscular Hemoglobin 30.6 pg (27.0-31.0); Mean Corpuscular Volume 89.9 fL (78.0-98.0); Mean Platelet Volume 9.6 fL (7.4-10.4); Platelet Count 218 thou/uL (130-400); RBC Distribution Width 11.7 % (11.5-14.5); Red Blood Cell (RBC) Count 4.38 mill/uL (4.20-5.40); White Blood Cell (WBC) Count 7.9 thou/uL (4.8-10.8)
[2020-07-18 16:00] LABS: ALT (SGPT) 14 U/L (8-55); AST (SGOT) 18 U/L (5-34); Albumin 4.2 g/dL (3.4-4.8); Alkaline Phosphatase 57 U/L (40-110); Anion Gap 12 mmol/L (10-20); BUN (Urea Nitrogen) 16 mg/dL (9.8-20.1); Bilirubin, Total 1.1 mg/dL (0.2-1.2); Calc. Creatinine Clearance 0 mL/min (70-130); Calcium 9.7 mg/dL (7.8-10.44); Carbon Dioxide 26 mmol/L (23-31); Chloride 106 mmol/L (98-107); Estimated GFR-MDRD 62; Globulin 2.4 g/dL (2.4-3.5); Glucose 124 mg/dL (80-115); Lipase 27 U/L (8-78); Potassium 3.4 mmol/L (3.5-5.1); Protein, Total 6.6 g/dL (6.0-8.3); Sodium 141 mmol/L (136-145)
--- NOTE | 2020-07-18 17:57 | CT ---
CT OF THE ABDOMEN AND PELVIS WITH CONTRAST: 07/18/20 COMPARISON: 06/29/05. HISTORY: Syncope while having diarrhea and abdominal pain. TECHNIQUE: Multiple contiguous axial images were obtained in a CT of the abdomen and pelvis with contrast. Sagit viktor and coronal reformats were performed. FINDINGS: The gallbladder is contracted. The liver, kidneys, adrenal glands, spleen, and pancreas are unremarka ble. No free air, free fluid, or stranding changes are seen in the abdomen or pelvis. There are a few scattered diverticula in the sigmoid colon. The small bowel is normal in caliber. Flu id is seen in the right colon. The left colon is predominantly decompressed. The patient is status post hysterectomy. No abdominal or pelvic lymphadenopathy is seen. Atherosclero tic calcifications are seen in the aorta. There is a small hiatal hernia. Scattered calcified granulomas and other well circumscribed nodules a re seen in the right lung base. The majority of the nodules are stable compared to the prior exam leena t are low enough in the lungs to be seen on the prior examination. Mild degenerative changes are seen in the spine. The abdominal wall soft tissues are unremarkable. IMPRESSION: Diverticulosis. POS: EAA
== END 2020-07-18 17:56 | disposition home or self-care (01) ==
LOC: ERS 14:26
DX: R55 Syncope and collapse (principal); R10.9 Unspecified abdominal pain; R19.7 Diarrhea, unspecified; E78.5 Hyperlipidemia, unspecified; Z86.73 Personal history of transient ischemic attack (TIA), and cerebral infarction without residual deficits; Z79.899 Other long term (current) drug therapy
CPT/HCPCS: 36415; 74177; 80053; 83690; 84484; 85025; 93005; Q9967

== ENCOUNTER 2021-01-27 18:14 | Emergency (ER) | payer MEDICARE ==
[2021-01-27 19:08] LABS: #Basophils 0.1 thou/uL (0.0-0.2); #Eosinphils 0.1 thou/uL (0.0-0.7); #Lymphocytes 3.3 thou/uL (1.20-3.40); #Monocytes 0.7 thou/uL (0.11-0.59); #Neutrophils 4.2 thou/uL (1.40-6.50); %Basophils 0.6 % (0.0-1.0); %Eosinophils 1.7 % (0.0-10.0); %Lymphocytes 39.7 % (21.0-51.0); %Monocytes 8.4 % (0.0-10.0); %Neutrophils 49.6 % (42.0-75.0); Hemoglobin 13.2 g/dL (12.0-16.0); Mean Corpuscular HGB CONC 34.4 g/dL (32.0-36.0); Mean Corpuscular Hemoglobin 30.8 pg (27.0-31.0); Mean Corpuscular Volume 89.6 fL (78.0-98.0); Mean Platelet Volume 9.3 fL (7.4-10.4); Platelet Count 213 thou/uL (130-400); RBC Distribution Width 11.7 % (11.5-14.5); White Blood Cell (WBC) Count 8.4 thou/uL (4.8-10.8)
[2021-01-27 19:32] LABS: ALT (SGPT) 21 U/L (8-55); AST (SGOT) 21 U/L (5-34); Alkaline Phosphatase 57 U/L (40-110); Anion Gap 15 mmol/L (10-20); BUN (Urea Nitrogen) 17 mg/dL (9.8-20.1); Calc. Creatinine Clearance 0 mL/min (70-130); Calcium 9.2 mg/dL (7.8-10.44); Carbon Dioxide 20 mmol/L (23-31); Chloride 109 mmol/L (98-107); Globulin 2.7 g/dL (2.4-3.5); Glucose 93 mg/dL (80-115); Potassium 3.5 mmol/L (3.5-5.1); Protein, Total 6.7 g/dL (5.8-8.1); Sodium 140 mmol/L (136-145)
== END 2021-01-27 20:45 | disposition home or self-care (01) ==
LOC: ERS 18:14
DX: R53.83 Other fatigue (principal); I10 Essential (primary) hypertension; E78.5 Hyperlipidemia, unspecified; Z79.899 Other long term (current) drug therapy
CPT/HCPCS: 36415; 71045; 80053; 83735; 84443; 84484; 85025; 85379; 93005

== ENCOUNTER 2021-02-07 12:38 | Observation (INO) | payer MEDICARE ==
[2021-02-07 13:10] LABS: #Basophils 0.1 thou/uL (0.0-0.2); #Eosinphils 0.1 thou/uL (0.0-0.7); #Monocytes 0.4 thou/uL (0.11-0.59); #Neutrophils 4.6 thou/uL (1.40-6.50); %Basophils 0.9 % (0.0-1.0); %Eosinophils 1.4 % (0.0-10.0); %Lymphocytes 36.7 % (21.0-51.0); %Monocytes 4.9 % (0.0-10.0); Hemoglobin 14.7 g/dL (12.0-16.0); Mean Corpuscular HGB CONC 33.6 g/dL (32.0-36.0); Mean Corpuscular Hemoglobin 30.2 pg (27.0-31.0); Mean Platelet Volume 9.4 fL (7.4-10.4); Platelet Count 246 thou/uL (130-400); RBC Distribution Width 11.9 % (11.5-14.5); Red Blood Cell (RBC) Count 4.86 mill/uL (4.20-5.40); White Blood Cell (WBC) Count 8.2 thou/uL (4.8-10.8)
[2021-02-07 13:48] LABS: AST (SGOT) 55 U/L (5-34)
[2021-02-07 13:49] LABS: ALT (SGPT) 36 U/L (8-55); Magnesium 2.1 mg/dL (1.6-2.6)
[2021-02-07 14:15] LABS: Bacteria/HPF None Seen HPF (None Seen); Bilirubin Negative (Negative); Blood, Urine Negative (Negative); Clarity Clear (Clear); Glucose, Urine (Dipstick) Normal (Negative); Ketone, Urine Negative (Negative); Leukocyte 25 Leu/uL (Negative); Nitrite Negative (Negative); Protein, Urine (Dipstick) Negative (Neg-Trace); RBC/HPF 0-3 HPF (0-3); Specific Gravity, Urine 1.015 (1.002-1.036); Squamous Epithelial None Seen HPF (0-3); Urobilinogen Normal mg/dL (Less than 2); WBC/HPF 0-3 HPF (0-3); pH, Urine 6.5 (5.0-9.0)
[2021-02-07 15:14] LABS: Albumin 4.1 g/dL (3.4-4.8); Alkaline Phosphatase 62 U/L (40-110); Anion Gap 12 mmol/L (10-20); BUN (Urea Nitrogen) 13 mg/dL (9.8-20.1); Calc. Creatinine Clearance 0 mL/min (70-130); Calcium 9.6 mg/dL (7.8-10.44); Carbon Dioxide 25 mmol/L (23-31); Chloride 107 mmol/L (98-107); Glucose 99 mg/dL (80-115); Potassium 3.7 mmol/L (3.5-5.1); Protein, Total 7.1 g/dL (5.8-8.1); Sodium 140 mmol/L (136-145)
[2021-02-07 16:41] LABS: Lactic Acid 0.9 mmol/L (0.5-2.2)
[2021-02-07 17:30] LABS: Troponin I Less than 0.010 ng/mL (< 0.028)
== END 2021-02-07 18:12 | disposition home or self-care (01) ==
LOC: ERS 12:38 → ERHOLD 16:41
PROVIDERS: ADMIT Internal Medicine; ATTEND Internal Medicine
DX: R06.02 Shortness of breath (principal); I44.0 Atrioventricular block, first degree; R00.1 Bradycardia, unspecified; R55 Syncope and collapse; E78.5 Hyperlipidemia, unspecified; I10 Essential (primary) hypertension; I08.1 Rheumatic disorders of both mitral and tricuspid valves; Z86.74 Personal history of sudden cardiac arrest; Z87.891 Personal history of nicotine dependence; Z79.82 Long term (current) use of aspirin; Z79.899 Other long term (current) drug therapy
CPT/HCPCS: 36415; 71275; 80053; 81003; 81015; 83605; 83735; 83880; 84443; 84484; 85025; 93005; 93306; 94760; G0378

== ENCOUNTER 2021-12-25 09:15 | Inpatient (IN) | payer MEDICARE ==
[2021-12-25] MEDS ORDERED: Aspirin Chewable 81 MG TAB ONE (10:34)
[2021-12-25] MEDS ORDERED: Nitroglycerin 2% Ointment 1 INCH/1 GM Packet ONE (10:34)
[2021-12-25 10:54] LABS: #Eosinphils 0.1 thou/uL (0.0-0.7); #Lymphocytes 2.3 thou/uL (1.20-3.40); #Monocytes 0.5 thou/uL (0.11-0.59); #Neutrophils 3.3 thou/uL (1.40-6.50); %Basophils 0.6 % (0.0-1.0); %Eosinophils 1.6 % (0.0-10.0); %Lymphocytes 36.2 % (21.0-51.0); %Monocytes 8.3 % (0.0-10.0); %Neutrophils 53.3 % (42.0-75.0); Hemoglobin 14.8 g/dL (12.0-16.0); Mean Corpuscular HGB CONC 33.5 g/dL (32.0-36.0); Mean Corpuscular Hemoglobin 31.3 pg (27.0-31.0); Mean Corpuscular Volume 93.4 fL (78.0-98.0); Platelet Count 222 thou/uL (130-400); RBC Distribution Width 11.6 % (11.5-14.5); Red Blood Cell (RBC) Count 4.74 mill/uL (4.20-5.40); White Blood Cell (WBC) Count 6.3 thou/uL (4.8-10.8)
[2021-12-25 11:14] LABS: ALT (SGPT) 20 U/L (8-55); AST (SGOT) 22 U/L (5-34); Albumin 4.7 g/dL (3.4-4.8); Alkaline Phosphatase 75 U/L (40-110); Anion Gap 13 mmol/L (10-20); BUN (Urea Nitrogen) 11 mg/dL (9.8-20.1); Bilirubin, Total 1.7 mg/dL (0.2-1.2); CK (CPK) 89 U/L (29-168); Calc. Creatinine Clearance 0 mL/min (70-130); Calcium 9.8 mg/dL (7.8-10.44); Carbon Dioxide 24 mmol/L (23-31); Chloride 108 mmol/L (98-107); Globulin 3.1 g/dL (2.4-3.5); Glucose 94 mg/dL (80-115); Lipase 33 U/L (8-78); Potassium 3.7 mmol/L (3.5-5.1); Protein, Total 7.8 g/dL (5.8-8.1); Sodium 141 mmol/L (136-145)
[2021-12-25] MEDS ORDERED: Nitroglycerin 0.4 MG TAB (25 Tab Bottle) SL PRN (12:09)
[2021-12-25] MEDS ORDERED: Ondansetron PF 4 MG/2 ML Vial IVP PRN (12:09)
[2021-12-25] MEDS ORDERED: Ondansetron ODT 4 MG TAB PO PRN (12:09)
[2021-12-25] MEDS ORDERED: Acetaminophen 650 MG Suppository PR PRN (12:09)
[2021-12-25 14:23] LABS: Troponin I Less than 0.010 ng/mL (< 0.028)
[2021-12-25 14:58] VITALS: BMI 29.4
[2021-12-25 17:05] LABS: Troponin I Less than 0.010 ng/mL (< 0.028)
[2021-12-25] MEDS: Atorvastatin Calcium 40 MG TAB PO SCH (20:15)
[2021-12-25] MEDS: Lisinopril 5 MG TAB PO SCH (20:15)
[2021-12-25 22:08] LABS: SARS-CoV-2 PCR by NAA Not Detected (NotDetected)
[2021-12-26 05:35] LABS: Anion Gap 12 mmol/L (10-20); BUN (Urea Nitrogen) 10 mg/dL (9.8-20.1); Calc. Creatinine Clearance 75 mL/min (70-130); Calcium 9.4 mg/dL (7.8-10.44); Carbon Dioxide 26 mmol/L (23-31); Cardiac Risk 2.7 (Less than 4.5); Chloride 106 mmol/L (98-107); Cholesterol 156 mg/dl (< 200 Desired); Glucose 94 mg/dL (80-115); HDL Cholesterol 57 mg/dL (>60 Neg Risk); LDL Cholesterol, Calculated 79 mg/dL; Potassium 3.8 mmol/L (3.5-5.1); Sodium 140 mmol/L (136-145); Triglycerides 99 mg/dL (Less than 150)
[2021-12-26 05:43] LABS: #Basophils 0.1 thou/uL (0.0-0.2); #Eosinphils 0.1 thou/uL (0.0-0.7); #Lymphocytes 2.1 thou/uL (1.20-3.40); #Monocytes 0.6 thou/uL (0.11-0.59); #Neutrophils 3.5 thou/uL (1.40-6.50); %Basophils 0.8 % (0.0-1.0); %Eosinophils 1.8 % (0.0-10.0); %Lymphocytes 32.8 % (21.0-51.0); %Monocytes 9.1 % (0.0-10.0); %Neutrophils 55.6 % (42.0-75.0); Hemoglobin 13.8 g/dL (12.0-16.0); Mean Corpuscular HGB CONC 34.1 g/dL (32.0-36.0); Mean Corpuscular Hemoglobin 31.3 pg (27.0-31.0); Mean Platelet Volume 8.9 fL (7.4-10.4); Platelet Count 224 thou/uL (130-400); RBC Distribution Width 15.7 % (11.5-14.5); Red Blood Cell (RBC) Count 4.39 mill/uL (4.20-5.40); White Blood Cell (WBC) Count 6.4 thou/uL (4.8-10.8)
[2021-12-26] MEDS: Levothyroxine Sodium 88 MCG TAB PO SCH (05:57)
[2021-12-26] MEDS: Acetaminophen 325 MG TAB PO PRN (05:59)
[2021-12-26] MEDS: Lisinopril 5 MG TAB PO SCH ×2 (09:46→20:39)
[2021-12-26] MEDS: Aspirin Chewable 81 MG TAB PO SCH (09:48)
[2021-12-26] MEDS: Communication Order-Pharmacy FS SCH ×2 (20:39→22:28)
[2021-12-26] MEDS: Atorvastatin Calcium 40 MG TAB PO SCH (20:39)
[2021-12-27 04:36] LABS: #Eosinphils 0.2 thou/uL (0.0-0.7); #Lymphocytes 2.7 thou/uL (1.20-3.40); #Monocytes 0.7 thou/uL (0.11-0.59); #Neutrophils 3.5 thou/uL (1.40-6.50); %Basophils 0.5 % (0.0-1.0); %Eosinophils 2.1 % (0.0-10.0); %Lymphocytes 37.7 % (21.0-51.0); %Monocytes 9.7 % (0.0-10.0); %Neutrophils 49.9 % (42.0-75.0); Hemoglobin 13.7 g/dL (12.0-16.0); Mean Corpuscular HGB CONC 33.2 g/dL (32.0-36.0); Mean Corpuscular Hemoglobin 31.2 pg (27.0-31.0); Mean Corpuscular Volume 94.2 fL (78.0-98.0); Platelet Count 208 thou/uL (130-400); RBC Distribution Width 11.6 % (11.5-14.5); White Blood Cell (WBC) Count 7.1 thou/uL (4.8-10.8)
[2021-12-27 04:56] LABS: Anion Gap 11 mmol/L (10-20); BUN (Urea Nitrogen) 13 mg/dL (9.8-20.1); Calc. Creatinine Clearance 84 mL/min (70-130); Calcium 9.4 mg/dL (7.8-10.44); Carbon Dioxide 27 mmol/L (23-31); Chloride 107 mmol/L (98-107); Glucose 97 mg/dL (80-115); Potassium 3.5 mmol/L (3.5-5.1); Sodium 141 mmol/L (136-145)
[2021-12-27] MEDS: Levothyroxine Sodium 88 MCG TAB PO SCH (05:45)
[2021-12-27] MEDS: Aspirin Chewable 81 MG TAB PO SCH (05:46)
[2021-12-27] MEDS: Lisinopril 5 MG TAB PO SCH (05:47)
[2021-12-27] MEDS ORDERED: Sodium Chloride 0.9% 1,000 ML IV SCH (06:00)
[2021-12-27] MEDS ORDERED: Midazolam HCl 2 mg/2 ml Vial ONE (07:27)
[2021-12-27] MEDS ORDERED: Fentanyl 100 MCG/2 ML VIAL ONE (07:27)
[2021-12-27] MEDS ORDERED: Nitroglycerin 100MG/250ML BOT 250 ML ONE (07:42)
[2021-12-27] MEDS ORDERED: Sodium Chloride 0.9% 200 ML IV PRN (08:18)
[2021-12-27] MEDS ORDERED: Acetaminophen/Codeine 30-300mg Tablet PO PRN (08:18)
[2021-12-27] MEDS ORDERED: Nitroglycerin 0.4 MG TAB (25 Tab Bottle) SL PRN (08:18)
[2021-12-27] MEDS: Acetaminophen 325 MG TAB PO PRN (10:59)
[2021-12-27 11:14] VITALS: BP 151/76; TEMP 97.5
[2021-12-28] MEDS ORDERED: Ezetimibe 10 MG TAB PO SCH (09:00)
== END 2021-12-27 16:15 | disposition home or self-care (01) | DRG 287 ==
LOC: ERS 09:15 → ERHOLD 11:53 → 2SW 13:55 → OBSVTOIN 12-27 13:34
PROVIDERS: ADMIT Internal Medicine; ATTEND Internal Medicine
PROC: 4A023N7 Measurement of Cardiac Sampling and Pressure, Left Heart, Percutaneous Approach (ICD-10-PCS; principal; 2021-12-27)
PROC: B2111ZZ Fluoroscopy of Multiple Coronary Arteries using Low Osmolar Contrast (ICD-10-PCS; 2021-12-27)
PROC: B2151ZZ Fluoroscopy of Left Heart using Low Osmolar Contrast (ICD-10-PCS; 2021-12-27)
DX: R07.9 Chest pain, unspecified (principal); R55 Syncope and collapse; Z20.822 Contact with and (suspected) exposure to COVID-19; I10 Essential (primary) hypertension; E78.5 Hyperlipidemia, unspecified; E03.9 Hypothyroidism, unspecified; F41.9 Anxiety disorder, unspecified; K21.9 Gastro-esophageal reflux disease without esophagitis; F32.A Depression, unspecified; Z79.899 Other long term (current) drug therapy; Z79.890 Hormone replacement therapy; Z90.710 Acquired absence of both cervix and uterus; Z98.890 Other specified postprocedural states; Z87.891 Personal history of nicotine dependence
CPT/HCPCS: 36415; 71045; 80048; 80053; 80061; 82550; 83690; 83880; 84443; 84484; 85025; 85379; 93005; 93306; 93458; 94760; 99152; 99153; J2250; J3010; J7050; U0003; U0005

== ENCOUNTER 2022-11-07 09:28 | Outpatient (CLI) | payer MEDICARE | END 2022-11-07 09:29 | disposition home or self-care (01) | LOC: BICMAMMO 09:28 | PROVIDERS: ATTEND Internal Medicine | DX: Z12.31 Encounter for screening mammogram for malignant neoplasm of breast (principal); Z80.3 Family history of malignant neoplasm of breast | CPT/HCPCS: 77063; 77067 ==

== ENCOUNTER 2022-12-26 08:36 | Outpatient (CLI) | payer MEDICARE | END 2022-12-26 08:37 | disposition home or self-care (01) | LOC: MRI 08:36 | PROVIDERS: ATTEND Family Medicine | DX: M51.16 Intervertebral disc disorders with radiculopathy, lumbar region (principal); M51.14 Intervertebral disc disorders with radiculopathy, thoracic region; M51.17 Intervertebral disc disorders with radiculopathy, lumbosacral region; M47.24 Other spondylosis with radiculopathy, thoracic region | CPT/HCPCS: 72146; 72148 ==

== ENCOUNTER 2024-01-05 09:36 | Outpatient (CLI) | payer MEDICARE | END 2024-01-05 09:37 | disposition home or self-care (01) | LOC: BICRAD 09:36 | PROVIDERS: ATTEND Family Medicine | DX: R06.02 Shortness of breath (principal) | CPT/HCPCS: 36415; 71046; 80053; 85025; 86140 ==

== ENCOUNTER 2024-06-16 10:10 | Outpatient (CLI) | payer MEDICARE | END 2024-06-16 10:11 | disposition home or self-care (01) | LOC: BICULT 10:10 | PROVIDERS: ATTEND Physician Assistant Medical | DX: R10.13 Epigastric pain (principal); R10.11 Right upper quadrant pain; R17 Unspecified jaundice; R19.7 Diarrhea, unspecified; R93.3 Abnormal findings on diagnostic imaging of other parts of digestive tract | CPT/HCPCS: 76705 ==

== ENCOUNTER 2024-09-01 10:52 | Emergency (ER) | payer MEDICARE ==
[2024-09-01 11:25] LABS: #Basophils 0.07 10x3/uL (0.0-0.2); %Basophils 0.7 % (0.0-1.0); %Lymphocytes 41.7 % (21.0-51.0); %Monocytes 6.6 % (0.0-10.0); %Neutrophils 49.6 % (42.0-75.0); Hematocrit 42.4 % (36.0-47.0); Hemoglobin 14.3 g/dL (12.0-16.0); Mean Corpuscular HGB CONC 33.7 g/dL (32.0-36.0); Mean Corpuscular Hemoglobin 30.1 pg (27.0-31.0); Mean Corpuscular Volume 89.3 fL (78.0-98.0); Mean Platelet Volume 11.3 fL (7.4-10.4); Platelet Count 241 10x3/uL (130-400); RBC Distribution Width 12.9 % (11.5-14.5); Red Blood Cell (RBC) Count 4.75 mill/uL (4.20-5.40)
[2024-09-01] MEDS ORDERED: Aspirin Chewable 81 MG TAB ONE (11:35)
[2024-09-01 11:58] LABS: ALT (SGPT) 33 U/L (8-55); AST (SGOT) 30 U/L (5-34); Albumin 4.3 g/dL (3.4-4.8); Alkaline Phosphatase 51 U/L (40-110); Anion Gap 10 mmol/L (10-20); BUN (Urea Nitrogen) 15 mg/dL (9.8-20.1); Bilirubin, Total 1.1 mg/dL (0.2-1.2); Calc. Creatinine Clearance 0 mL/min (70-130); Calcium 9.5 mg/dL (7.8-10.44); Carbon Dioxide 26 mmol/L (23-31); Chloride 108 mmol/L (98-107); Estimated GFR 89; Globulin 3.4 g/dL (2.4-3.5); Glucose 91 mg/dL (83-110); Lipase 34 U/L (8-78); Magnesium 2.1 mg/dL (1.6-2.6); Potassium 3.3 mmol/L (3.5-5.1); Protein, Total 7.7 g/dL (5.8-8.1); Sodium 141 mmol/L (136-145)
[2024-09-01 12:02] LABS: Troponin I 0.015 ng/mL (< 0.028)
[2024-09-01 14:00] LABS: Bacteria/HPF None Seen HPF (None Seen); Bilirubin Negative (Negative); Blood, Urine Negative (Negative); CAUTI Indications for Culture Dysuria,urgency,freq; Clarity Clear (Clear); Glucose, Urine (Dipstick) Normal (Negative); Ketone, Urine Negative (Negative); Leukocyte Negative Leu/uL (Negative); Nitrite Negative (Negative); Protein, Urine (Dipstick) Negative (Neg-Trace); RBC/HPF 0-3 HPF (0-3); Specific Gravity, Urine 1.011 (1.002-1.036); Squamous Epithelial None Seen HPF (0-3); Urobilinogen Normal mg/dL (Less than 2); WBC/HPF 0-3 HPF (0-3)
[2024-09-01 14:39] LABS: Urine Culture Reflex No No
[2024-09-01 15:53] LABS: Troponin I Less than 0.010 ng/mL (< 0.028)
== END 2024-09-01 16:02 | disposition home or self-care (01) ==
LOC: ERS 10:52
DX: R07.2 Precordial pain (principal); E78.5 Hyperlipidemia, unspecified; I10 Essential (primary) hypertension; Z86.73 Personal history of transient ischemic attack (TIA), and cerebral infarction without residual deficits; Z87.891 Personal history of nicotine dependence
CPT/HCPCS: 36415; 71045; 80053; 81001; 83690; 83735; 84484; 85025; 85379; 93005